=== PATIENT | female | born 1985 | race African-American/Black ===

== ENCOUNTER 2017-07-16 11:47 | Emergency (ER) | payer MEDICAID ==
[~2017-07-16] VITALS: Ht 157.5 cm; Wt 52.0 kg
[2017-07-16] MEDS ORDERED: ACET-2178 PO (11:58)
[2017-07-16] MEDS ORDERED: IBUP-2030 PO (11:58)
[2017-07-16] MEDS ORDERED: SODIUM CHLORIDE 0.9% 1,000 ML IV ONE (15:28)
[2017-07-16] MEDS ORDERED: ONDANSETRON HCL 4MG/2ML VIAL IV ONE (15:30)
[2017-07-16] MEDS ORDERED: FAMOTIDINE 20MG/2ML VIAL IV ONE (15:30)
[2017-07-16 16:11] LABS: CHLORIDE 107 mEq/L (98-107)
[2017-07-16] MEDS ORDERED: KETOROLAC 30MG/ML VIAL IV ONE (16:15)
[2017-07-16 16:19] LABS: CARBON DIOXIDE 25 mEq/L (21-32); HEMATOCRIT. 35.3 % (36.0-48.0); HEMOGLOBIN. 11.9 g/dL (12.0-16.0); MEAN CORPUSCULAR HEMOGLOBIN 30.7 pg (28.0-32.0); MEAN CORPUSCULAR VOLUME 91.1 fL (81.0-99.0); MEAN PLATELET VOLUME 6.9 fl (7.4-10.4); PLATELET 405 x1000/uL (130-400); RED BLOOD CELL COUNT 3.87 mill/uL (4.2-5.4); RED CELL DISTRIBUTION WIDTH 13.5 % (11.6-14.6)
[2017-07-16 16:24] LABS: HCG SCREEN NEGATIVE
[2017-07-16 16:43] LABS: *AMPHETAMINES SCREEN URINE NEGATIVE (NEGATIVE); *BARBITURATES SCREEN URINE NEGATIVE (NEGATIVE); *BENZODIAZEPINES SCREEN URINE NEGATIVE (NEGATIVE); *COCAINE SCREEN URINE NEGATIVE (NEGATIVE); METHADONE URINE SCREEN NEGATIVE (NEGATIVE); OPIATES URINE SCREEN NEGATIVE (NEGATIVE); PHENCYCLIDINE URINE SCREEN NEGATIVE (NEGATIVE)
[2017-07-16 16:44] LABS: CANNABINOID URINE SCREEN PRESUMTIVE POSITIVE (NEGATIVE)
[2017-07-16 17:41] LABS: ATYPICAL LYMPHOCYTES 1; PLATELET ESTIMATE NORMAL
[2017-07-16 18:03] VITALS: BP 119/69
== END 2017-07-16 18:10 | disposition home or self-care (01) ==
LOC: ER 11:47
DX: R10.9 Unspecified abdominal pain (principal); R11.2 Nausea with vomiting, unspecified; K08.89 Other specified disorders of teeth and supporting structures; F12.10 Cannabis abuse, uncomplicated
CPT/HCPCS: 36415; 80048; 80305; 80307; 80329; 84703; 85025; 96361; 96374; 96375; 99285; J1885; J2405; J3490; J7030; Z7610